=== PATIENT | female | born 2000 | race African-American/Black ===

== ENCOUNTER 2023-11-28 06:31 | Emergency (ER) | payer BC, SELFPAY ==
[2023-11-28 06:33] VITALS: BP 133/90; PULSE 109; RESP 16; TEMP 36.8; O2SAT 100
--- NOTE | 2023-11-28 06:45 | ECG_ITS ---
Measurements Intervals [place] Rate: 91 P: 49 NC: 139 QRS: 23 QRSD: 83 T: 30 QT: 347 QTc: 428 Interpretive Statements SINUS RHYTHM NO PREVIOUS ECG AVAILABLE FOR COMPARISON Electronically Signed On 11-28-2023 13:58:26 LINUX ADMIN by Inessa Frey M.D.
[2023-11-28 06:49] VITALS: PULSE 97
--- NOTE | 2023-11-28 07:13 | ED.NAVMDI ---
HPI - Nausea/Vomiting/Diarrhea General Chief complaint: Dizziness Stated complaint: dizzy, nauseous Time Seen by Provider: 11/28/23 07:00 History of Present Illness HPI Narrative: Patient was recently diagnosed with GERD several months ago, has been on omeprazole daily, however the last few days has been having trouble keeping things down, with left upper quadrant pain, unable to take her medications. She has tried be hydrating herself orally but has not been able to keep anything down, last few days has been getting lightheaded especially when she stands up. No chest pain, fevers, cough or trouble breathing, headache. Denies dysuria or flank pain. No focal numbness or weakness. Related Data Allergies Allergy/AdvReac Type Severity Reaction Status Date / Time strawberry Allergy Mild Verified 10/15/10 09:34 Review of Systems Review of Systems: All systems reviewed & are unremarkable except as noted in HPI and below Exam Narrative: EXAMINATION OF ORGAN SYSTEMS/BODY AREAS: Constitutional: Vital signs per nursing GENERAL:[No acute distress, non-toxic appearing.] HEAD: Normal with no signs of head trauma. EYES: EOMI, conjunctiva normal ENT: Hearing grossly intact LUNGS: Nonlabored breathing. HEART: [Regular rate and rhythm] ABD: [Soft], [nontender to palpation] EXT: Normal range of motion SKIN: [No rashes or lesions.] NEURO: [Alert and oriented x 3. No gross focal sensory or strength deficits.] PSYCH: Normal affect Course Vital Signs Vital signs: Vital Signs Temperature 98.2 F 11/28/23 06:33 Pulse Rate 109 H 11/28/23 06:33 Respiratory Rate 16 11/28/23 06:33 Blood Pressure 133/90 11/28/23 06:33 Pulse Oximetry 100 11/28/23 06:33 Oxygen Delivery Room Air 11/28/23 06:33 Temperature 98.2 F 11/28/23 06:33 Pulse Rate 86 11/28/23 07:39 Respiratory Rate 18 11/28/23 07:39 Blood Pressure 120/92 H 11/28/23 07:39 Pulse Oximetry 100 11/28/23 07:39 Oxygen Delivery Room Air 11/28/23 06:33 MDM - Nausea/Vomiting/Diarrhea MDM Narrative Medical decision making narrative: Electronic medical record was reviewed. Patient presented to the ED with complaint of [abdominal pain and vomiting and lightheaded]. Vitals [were within acceptable limits]. Physical exam revealed overall well-appearing patient, in no distress, abdomen soft nontender, no CVA tenderness. Based on the patient's history and physical exam, my differential includes but is not limited to [gastritis, gastroenteritis, very low likelihood of cholecystitis, pancreatitis, appendicitis without focal tenderness]. [IV access was established by nursing staff. Patient was given zofran, Protonix, IV fluids]. CBC, BMP, lipase, LFTs, bilirubin and alk phos were obtained. Labs were pertinent for ketones and blood in urine however patient states that she is currently on her period. On reevaluation, the patient states that they are feeling much better. There were no witnessed episodes of vomiting in the emergency department. They are not complaining of any new abdominal pain. Repeat examination did not show any significant guarding or rebound. No new tenderness. At this time I do not feel there is any further emergent treatment to be provided. The patient was given strict return precautions, if they are to develop any worsening abdominal pain, vomiting, or blood in the vomit they are to return to the emergency department immediately. Patient verbally acknowledges understanding these directions. [The patient was informed of the above diagnostic test findings.] No further workup is necessary at this time. They will be discharged home [with prescriptions For Zofran and famotidine, I did also advise her on various things to avoid including NSAIDs, greasy and fatty and spicy food, caffeine, alcohol]. They were advised to follow-up with [their PCP] in 2 days. The patient feels that this is appropriate medical decision making and verbalizes an understanding
[2023-11-28] MEDS: METOCLOPRAMIDE HCL INJ 10 MG/2 ML VIAL IV PUSH (07:25)
[2023-11-28] MEDS: PANTOPRAZOLE SODIUM IV 40 MG VIAL IV PUSH (07:25)
[2023-11-28] MEDS: LACTATED RINGERS 1,000 ML 999 ML IV CONT (07:25)
[2023-11-28] MEDS: MECLIZINE HCL 25 MG TABLET PO (07:26)
[2023-11-28 07:37] LABS: Lipase 81 U/L (23-300)
[2023-11-28 07:39] VITALS: BP 120/92; PULSE 86; RESP 18; O2SAT 100
[2023-11-28 08:05] LABS: Appearance Urine Cloudy (Clear); Bacteria Urine 1+ /hpf; Bilirubin Urine 1+ (Negative); Blood Urine 3+ (Negative); Calcium Oxalate Crystals Urine Present /hpf; Color Urine Dark Yellow (Yellow); Glucose Urine UA Negative (Negative); Ketones Urine 2+ mg/dL (Negative); Leukocyte Esterase Ur 1+ LEU/UL (Negative); Need Manual Microscopic Reviewed; Nitrate Urine Negative (Negative); Non Pathogenic Casts 0-2; Protein Urine 1+ mg/dL (Negative); RBC Urine >100 /hpf (0-2); Specific Grav Ur 1.021 (1.001-1.035); Squamous Epithelial Cell Urine Few /hpf (Few); pH Urine 5.5 (5.0-9.0)
[2023-11-28 08:06] LABS: Add Urine Microscopic? YES
[2023-11-28 08:54] VITALS: BP 104/82; PULSE 76; RESP 18; O2SAT 100
[2023-11-28 09:01] LABS: Basophils Percent Auto 0.6 % (0.2-1.2); Hematocrit 33.9 % (37.0-47.0); Hemoglobin 11.3 g/dL (12.0-15.0); Lymphocytes Absolute Auto 1.13 K/mm3 (0.9-3.2); Lymphocytes Percent Auto 36.5 % (18.3-44.2); Mean Corpuscular HGB Conc 33.3 g/dl (32-36); Mean Corpuscular Hemoglobin 27.6 pg (26-34); Mean Corpuscular Volume 82.9 fl (80-100); Mean Platelet Volume 10.7 fl (7.4-10.4); Monocytes Absolute Auto 0.5 K/mm3 (0.1-0.6); Monocytes Percent Auto 15.8 % (2.6-8.5); Neutrophils Absolute Auto 1.4 K/mm3 (1.3-6.7); Neutrophils Percent Auto 46.1 % (45.5-73.1); Platelet Count Result 280 k/mm3 (150-375); Red Blood Count 4.09 M/mm3 (4.2-5.4); Red Cell Distribution Width 12.8 % (11.5-14.5); White Blood Count 3.1 K/mm3 (4.5-10.0)
== END 2023-11-28 08:55 | disposition home or self-care (01) ==
PROVIDERS: Emergency Provider Emergency Medicine; PCP Family Medicine
DX: R10.12 Left upper quadrant pain (principal); R42 Dizziness and giddiness; R11.0 Nausea; K21.9 Gastro-esophageal reflux disease without esophagitis
CPT/HCPCS: 36415; 81001; 81025; 83690; 85025; 87086; 93005; 96361; 96374; 96375; 99284; A9270; C9113; J2765; J7120

== ENCOUNTER 2023-12-14 11:06 | Emergency (ER) | payer BC, SELFPAY ==
[2023-12-14] VITALS (14 sets, daily range): BP systolic 113–139; BP diastolic 69–89; PULSE 92–120; RESP 13–26; TEMP 36.4–36.9; O2SAT 100
--- NOTE | 2023-12-14 13:31 | ED.GENADULT ---
HPI - General Adult General Chief complaint: Nausea/Vomiting/Diarrhea Stated complaint: vomiting x 9 days Time Seen by Provider: 12/14/23 13:13 History of Present Illness HPI narrative: 23-year-old female presented to the emergency department for evaluation of persistent nausea and vomiting. Patient reports she has had symptoms of nausea and vomiting ongoing for the past 8 days. Patient denies any associated abdominal pain. patient denies any urinary symptoms. Patient states she is not currently menstruating. Related Data Allergies Allergy/AdvReac Type Severity Reaction Status Date / Time strawberry Allergy Mild Rash Verified 12/14/23 11:20 Review of Systems Review of Systems: All systems reviewed & are unremarkable except as noted in HPI and below Exam Narrative: APPEARANCE: Well appearing, no pain, no distress, well-nourished. HEAD: normocephalic, atraumatic. EYES: PERRLA/EOMI, conjunctivae clear. NOSE: Normal no drainage EARS:TMS clear with good light reflex. THROAT: Pharynx clear, no exudate. NECK: Supple. No adenopathy, no masses. RESPIRATORY: Airway patent, respirations nonlabored. Clear to auscultation bilaterally, no rales, rhonchi, wheezing. CARDIOVASCULAR: Regular rate and rhythm without murmurs rubs or gallops. ABDOMINAL: Soft, nontender, nondistended, normal bowel sounds MUSCULOSKELETAL: Moves all extremities. Strength/ROM intact, No edema, No calf tenderness. NEURO: Alert. Cranial nerves II through XII intact. Grossly intact SKIN: Warm, dry. Normal Color Course Course Emergency Course: 23-year-old female presenting emergency department for evaluation for nausea vomiting diarrhea. Patient's UA was concerning for urinary tract infection. Patient is afebrile with no leukocytosis and a stable hemoglobin of 14.9 patient did have an elevated lactic acid was treated with IV fluids. Patient was started on antibiotics for a urinary tract infection. Patient tolerate p.o.. Vital Signs Vital signs: Vital Signs Temperature 97.5 F L 12/14/23 11:18 Pulse Rate 120 H 12/14/23 11:18 Respiratory Rate 18 12/14/23 11:18 Blood Pressure 139/69 12/14/23 11:18 Pulse Oximetry 100 12/14/23 11:18 Oxygen Delivery Room Air 12/14/23 11:18 Temperature 97.5 F L 12/14/23 15:53 Pulse Rate 92 12/14/23 15:53 Respiratory Rate 18 12/14/23 15:53 Blood Pressure 121/79 12/14/23 15:53 Pulse Oximetry 100 12/14/23 15:53 Oxygen Delivery Room Air 12/14/23 11:18 Medical Decision Making Differential Diagnosis Differential Diagnosis: COVID, influenza, RSV, gastroenteritis, colitis, UTI Vital Signs Vital Signs: Vital Signs Temperature 97.5 F L 12/14/23 11:18 Pulse Rate 120 H 12/14/23 11:18 Respiratory Rate 18 12/14/23 11:18 Blood Pressure 139/69 12/14/23 11:18 Pulse Oximetry 100 12/14/23 11:18 Oxygen Delivery Room Air 12/14/23 11:18 Temperature 97.5 F L 12/14/23 15:53 Pulse Rate 92 12/14/23 15:53 Respiratory Rate 18 12/14/23 15:53 Blood Pressure 121/79 12/14/23 15:53 Pulse Oximetry 100 12/14/23 15:53 Oxygen Delivery Room Air 12/14/23 11:18 Lab Data 12/14/23 13:41 12/14/23 13:41 Labs: Lab Results 12/14/23 Range/Units 13:41 WBC 7.5 (4.5-10.0) K/mm3 RBC 5.26 (4.2-5.4) M/mm3 Hgb 14.9 D (12.0-15.0) g/dL Hct 43.1 (37.0-47.0) % MCV 81.9 (80-100) fl MCH 28.3 (26-34) pg MCHC 34.6 (32-36) g/dl RDW 13.3 (11.5-14.5) % Plt Count 427 H D (150-375) k/mm3 MPV 11.2 H (7.4-10.4) fl Immature Gran % (Auto) 0.3 (0-0.5) % Neut % (Auto) 71.9 (45.5-73.1) % Lymph % (Auto) 15.7 L (18.3-44.2) % Leake % (Auto) 11.8 H (2.6-8.5) % Eos % (Auto) 0.0 (0-4.4) % Baso % (Auto) 0.3 (0.2-1.2) % Lymph # (Auto) 1.17 (0.9-3.2) K/mm3 Leake # (Auto) 0.9 H (0.1-0.6) K/mm3 Eos # (Auto) 0.0 (0-0.3) K/mm3 Baso # (Auto) 0.0 (0.0-0.1) K/mm3 Abs Immat Gran (auto) 0.02 (0.00-0.0
[2023-12-14] MEDS: SODIUM CHLORIDE 0.9% IV 1,000 ML 999 ML IV CONT ×2 (13:42→14:47)
[2023-12-14] MEDS: ONDANSETRON INJ 4 MG/2 ML VIAL IV PUSH (13:42)
[2023-12-14 13:54] LABS: Basophils Percent Auto 0.3 % (0.2-1.2); Hematocrit 43.1 % (37.0-47.0); Hemoglobin 14.9 g/dL (12.0-15.0); Immature Granulocyte Absolute 0.02 K/mm3 (0.00-0.031); Immature Granulocyte Percent A 0.3 % (0-0.5); Lymphocytes Absolute Auto 1.17 K/mm3 (0.9-3.2); Lymphocytes Percent Auto 15.7 % (18.3-44.2); Mean Corpuscular HGB Conc 34.6 g/dl (32-36); Mean Corpuscular Hemoglobin 28.3 pg (26-34); Mean Corpuscular Volume 81.9 fl (80-100); Mean Platelet Volume 11.2 fl (7.4-10.4); Monocytes Absolute Auto 0.9 K/mm3 (0.1-0.6); Monocytes Percent Auto 11.8 % (2.6-8.5); Neutrophils Absolute Auto 5.4 K/mm3 (1.3-6.7); Neutrophils Percent Auto 71.9 % (45.5-73.1); Platelet Count Result 427 k/mm3 (150-375); Red Blood Count 5.26 M/mm3 (4.2-5.4); Red Cell Distribution Width 13.3 % (11.5-14.5); White Blood Count 7.5 K/mm3 (4.5-10.0)
[2023-12-14 14:04] LABS: Lactic Acid Reflex 2.1 mmol/L (0.7-2.0)
[2023-12-14] MEDS: METOCLOPRAMIDE HCL INJ 10 MG/2 ML VIAL IV PUSH (14:14)
[2023-12-14 14:16] LABS: Alanine Aminotransferase 27 U/L (6-35); Albumin Level 5.3 g/dL (3.5-5.1); Alkaline Phosphatase 69 U/L (38-126); Anion Gap 22 mmol/L (8-16); Aspartate Amino Transferase 35 U/L (14-36); Bilirubin,Total 2.1 mg/dL (0.2-1.3); Blood Urea Nitrogen 16 mg/dL (7-17); Calcium 11.6 mg/dL (8.4-10.2); Carbon Dioxide 15 mmol/L (22-30); Chloride 97 mmol/L (98-107); Estimated CRCL calculation 131 ml/min; Estimated Glomerular Filt Rate > 60; Glucose 121 mg/dL (65-110); Lipase 107 U/L (23-300); Sodium 134 mmol/L (137-145)
[2023-12-14 14:30] LABS: Appearance Urine Turbid (Clear); Bacteria Urine 4+ /hpf; Bilirubin Urine 2+ (Negative); Blood Urine Negative (Negative); Color Urine Dark Yellow (Yellow); Glucose Urine UA Negative (Negative); Ketones Urine 4+ mg/dL (Negative); Leukocyte Esterase Ur Trace LEU/UL (Negative); Need Manual Microscopic Reviewed; Nitrate Urine Negative (Negative); Protein Urine 3+ mg/dL (Negative); RBC Urine 21-50 /hpf (0-2); Specific Grav Ur 1.033 (1.001-1.035); Squamous Epithelial Cell Urine Moderate /hpf (Few); pH Urine 6.5 (5.0-9.0)
[2023-12-14 14:31] LABS: Add Urine Microscopic? YES
[2023-12-14 16:52] LABS: Reflex Lactic Acid Yes or No Add Lactic
== END 2023-12-14 15:55 | disposition home or self-care (01) ==
PROVIDERS: Emergency Provider Emergency Medicine; PCP Family Medicine
DX: N39.0 Urinary tract infection, site not specified (principal); R11.2 Nausea with vomiting, unspecified
CPT/HCPCS: 36415; 80053; 81001; 81025; 83605; 83690; 85025; 87086; 96361; 96365; 96375; 99284; J0696; J2405; J2765; J7030